=== PATIENT | female | born 1985 | race Caucasian/White ===

== ENCOUNTER 2017-10-26 12:09 | Emergency (ER) | payer MEDICAID ==
[~2017-10-26] VITALS: Ht 170.2 cm; Wt 60.0 kg
[~2017-10-26 12:09] MED LIST: CALNTAB; IBUP-232 PO; SENN1TAB PO
[2017-10-26 12:19] VITALS: BP 141/85; PULSE 85; RESP 20; TEMP 98.9; O2SAT 98
--- NOTE | 2017-10-26 13:35 | PD ---
HPI Chief Complaint: Abdominal Pain Time Seen by Provider: 13:22 Travel History International Travel<30 days: No Contact w/Intl Traveler<30days: No Traveled to known affect area: No History of Present Illness HPI 32-year-old female came to the emergency room with history of periumbilical pain on and off for past 2 weeks. Patient says she has been tolerating the pain but today she was at her class when the pain started again and got really severe. She had to leave the classroom because of the pain and at that time decided to come to the emergency room here. No history of nausea vomiting. Patient says every time she gets the pain she feels like she has to pass gas in order to feel better. She does feel better after she passes gas but then the pain comes back again. Patient has history of constipation. She has history of bowel movements normally once every 2 days. However in past 2 weeks she has been slower than that. She did not move her bowels for 4-5 days at a time in between. Patient has not tried any uhro-xyf-lclgoll laxatives or Gas-X or any other medication. She did some Google search today and found couple of worrisome differential diagnosis and hence came here. She does not have a primary care. Vital signs are stable. No aggravating factors identified for the pain. [facility] Past Medical History Narrative Medical List of her past medical, surgical, social and family history reviewed from the nursing note. Headaches: Yes ?: Unknown : 1 Para: 1 Social History Alcohol Use: Yes (occ) Tobacco Use: No Substance Use: No Allergies-Medications (Allergen,Severity, Reaction): Coded Allergies: No Known Allergies (Verified , 06/17/16) Comments No known drug allergies. Reported Meds & Prescriptions Reported Meds & Active Scripts Active Miralax Powder (Polyethylene Glycol 3350 Powder) 17 Gm Powd 17 Gm PO DAILY Mix and dissolve one measuring cap-ful (17 grams) in water or juice. Ibuprofen 600 Mg Tab 600 Mg PO Q6H PRN Senna Plus 8.6-50 mg (Sennosides-Docusate Sodium) 1 Tab Tab 1 Tab PO Q12H PRN Reported Calna ( Vitamin) 1 Tab Tab Narrative Medication List of her home medications reviewed from the nursing note Review of Systems Except as stated in HPI: all other systems reviewed are Neg Gastrointestinal: Positive: Abdominal Pain, Constipation Physical Exam Narrative GENERAL: Awake, alert, mild distress SKIN: Focused skin assessment warm/dry. HEAD: Atraumatic. Normocephalic. EYES: Pupils equal and round. No scleral icterus. No injection or drainage. ENT: No nasal bleeding or discharge. Mucous membranes pink and moist. NECK: Trachea midline. No JVD. CARDIOVASCULAR: Regular rate and rhythm. No murmur appreciated. RESPIRATORY: No accessory muscle use. Clear to auscultation. Breath sounds equal bilaterally. GASTROINTESTINAL: Abdomen soft, non-tender, nondistended. Hepatic and splenic margins not palpable. MUSCULOSKELETAL: No obvious deformities. No clubbing. No cyanosis. No edema. NEUROLOGICAL: Awake and alert. No obvious cranial nerve deficits. Motor grossly within normal limits. Normal speech. PSYCHIATRIC: Appropriate mood and affect; insight and judgment normal. Data Data Last Documented VS Orders Orders Complete Blood Count With Diff (10/26/17 12:22) Comprehensive Metabolic Panel (10/26/17 12:22) Urinalysis - C+S If Indicated (10/26/17 12:22) Ed Urine Pregnancytest Poc (10/26/17 12:22) Lipase (10/26/17 12:22) Abdomen, Flat & Upright (10/26/17 ) Ed Discharge Order (10/26/17 15:25) Labs Laboratory Tests Test 10/26/17 13:50 10/26/17 14:00 Urine Color YELLOW Urine Turbidity HAZY Urine pH 6.0 Urine Specific Parsons 1.028 Urine Protein TRACE mg/dL Urine Glucose (UA) NEG mg/dL Urine Ketones NEG mg/dL Urine Occult Blood NEG Urine Nitrite NEG Urine Bilirubin NEG Urine Urobilinogen LESS THAN 2.0 MG/DL Urine Leukocyte Esterase NEG Urine RBC LESS THAN 1 /hpf Urine WBC LESS THAN 1 /hpf Urine Squamous Epithelial Cells 7 /hpf Urine Bacteria OCC /hpf Urine Mucus FEW /lpf Microscopic Urinalysis Comment CULT NOT INDICATED White Blood Count 4.5 TH/MM3 Red Blood Count 3.82 MIL/MM3 Hemoglobin 11.8 GM/DL Hematocrit 35.3 % Mean Corpuscular Volume 92.4 FL Mean Corpuscular Hemoglobin 30.9 PG Mean Corpuscular Hemoglobin Concent 33.4 % Red Cell Distribution Width 12.4 % Platelet Count 186 TH/MM3 Mean Platelet Volume 7.8 FL Neutrophils (%) (Auto) 70.6 % Lymphocytes (%) (Auto) 15.7 % Monocytes (%) (Auto) 12.8 % Eosinophils (%) (Auto) 0.5 % Basophils (%) (Auto) 0.4 % Neutrophils # (Auto) 3.2 TH/MM3 Lymphocytes # (Auto) 0.7 TH/MM3 Monocytes # (Auto) 0.6 TH/MM3 Eosinophils # (Auto) 0.0 TH/MM3 Basophils # (Auto) 0.0 TH/MM3 CBC Comment DIFF FINAL Differential Comment Blood Urea Nitrogen 13 MG/DL Creatinine 0.64 MG/DL Random Glucose 83 MG/DL Total Protein 7.7 GM/DL Albumin 4.0 GM/DL Calcium Level 9.0 MG/DL Alkaline Phosphatase 63 U/L Aspartate Amino Transf (AST/SGOT) 15 U/L Alanine Aminotransferase (ALT/SGPT) 16 U/L Total Bilirubin 0.5 MG/DL Sodium Level 136 MEQ/L Potassium Level 3.7 MEQ/L Chloride Level 101 MEQ/L Carbon Dioxide Level 26.6 MEQ/L Anion Gap 8 MEQ/L Estimat Glomerular Filtration Rate 109 ML/MIN Lipase 120 U/L [facility] Medical Decision Making Medical Screen Exam Complete: Yes Emergency Medical Condition: Yes Medical Record Reviewed: Yes Differential Diagnosis Constipation, fecal impaction, enteritis Narrative Course 3:30 PM blood test results are back and within normal limit. X-ray is within normal limit. I will discharge her home with a prescription for MiraLAX. Procedures EKG Prior to Arrival: No Diagnosis Primary Impression: Constipation Qualified Codes: K59.00 - Constipation, unspecified Additional Impression: Abdominal pain Qualified Codes: R10.33 - Periumbilical pain Referrals: [facility] Additional Instructions: Take the medication as per prescription direction. Drink lots of fluid and high -fiber diet. Follow-up with the walk-in clinic whose address name has been provided to you on this discharge instructions. Med/Other Pt SpecificInfo: Prescription(s) given Scripts Polyethylene Glycol 3350 Powder (Miralax Powder) 17 Gm Powd 17 GM PO DAILY for Constipation, #1 CAN 0 Refills Mix and dissolve one measuring cap-ful (17 grams) in water or juice. Prov: Mahi Chowdhury MD 10/26/17 Disposition: 01 DISCHARGE HOME Condition: Stable Mahi Chowdhury MD Oct 26, 2017 13:35
[2017-10-26 14:31] LABS: AUTOMATED NEUTROPHIL # 3.2 TH/MM3 (1.8-7.7); BASOPHIL % 0.4 % (0.0-2.0); EOSINOPHIL % 0.5 % (0.0-4.0); HEMATOCRIT 35.3 % (35.0-46.0); HEMOGLOBIN 11.8 GM/DL (11.6-15.3); LYMPH % 15.7 % (9.0-44.0); LYMPHOCYTE # 0.7 TH/MM3 (1.0-4.8); MEAN CELL VOLUME 92.4 FL (80.0-100.0); MEAN CORPUSCULAR HEMOGLOBIN 30.9 PG (27.0-34.0); MEAN CORPUSCULAR HGB CONC 33.4 % (32.0-36.0); MEAN PLATELET VOLUME 7.8 FL (7.0-11.0); MONO % 12.8 % (0.0-8.0); MONOCYTE # 0.6 TH/MM3 (0-0.9); NEUT % 70.6 % (16.0-70.0); PLATELET COUNT 186 TH/MM3 (150-450); RED BLOOD COUNT 3.82 MIL/MM3 (4.00-5.30); RED CELL DISTRIBUTION WIDTH 12.4 % (11.6-17.2); WHITE BLOOD COUNT 4.5 TH/MM3 (4.0-11.0)
[2017-10-26 14:37] LABS: BACTERIA, URINE OCC /hpf; BILIRUBIN, URINE NEG (NEG); BLOOD, URINE NEG (NEG); GLUCOSE,URINE NEG (NEG); KETONE, URINE NEG (NEG); MUCUS URINE FEW /lpf (OCC); NITRITE,URINE NEG (NEG); SQUAMOUS EPITHELIAL CELL URINE 7 /hpf (0-5); URINE COLOR YELLOW (YELLW/STRAW); URINE LEUKOCYTE ESTERASE NEG (NEG)
[2017-10-26 14:49] LABS: AST (GOT) 15 U/L (15-37); BICARBONATE 26.6 MEQ/L (21.0-32.0); BLOOD UREA NITROGEN 13 MG/DL (7-18); CHLORIDE 101 MEQ/L (98-107); CREATININE 0.64 MG/DL (0.50-1.00); GLOMERULAR FILTRATION RATE 109 ML/MIN (>89); GLUCOSE,RANDOM 83 MG/DL (74-106); SODIUM (NA) 136 MEQ/L (136-145)
[2017-10-26 14:50] LABS: ALT (GPT) 16 U/L (10-53)
[2017-10-26 14:52] LABS: ALKALINE PHOSPHATASE 63 U/L (45-117); TOTAL BILIRUBIN ADULT 0.5 MG/DL (0.2-1.0); TOTAL PROTEIN 7.7 GM/DL (6.4-8.2)
--- NOTE | 2017-10-26 15:18 | RADRPT ---
EXAM DATE: 10/26/2017 3:14 PM EDT AGE/SEX: 32 years / Female INDICATIONS: Abdominal pain. CLINICAL DATA: This is the patient's initial encounter. Patient reports that signs and symptoms have been present for 1 week and indicates a pain score of 8/10. MEDICAL/SURGICAL HISTORY: None. None. COMPARISON: No prior [facility] exams available for comparison. FINDINGS: Supine and upright views of the abdomen were performed. The abdominal bowel gas pattern is normal. No air-fluid levels are seen. No abnormal masses, calcifications, or organomegaly is seen. The visualiz ed lower lungs are clear. No evidence of free intraperitoneal gas. The osseous structures are unremar kable. CONCLUSION: Negative examination. Electronically signed by: Tico Arroyo MD 10/26/2017 3:17 PM EDT
[2017-10-26] MEDS ORDERED: MIRA3350 PO (15:31)
== END 2017-10-26 16:12 | disposition home or self-care (01) ==
LOC: NEPD 12:09
DX: K59.00 Constipation, unspecified (principal); R10.33 Periumbilical pain
CPT/HCPCS: 74019; 80053; 81001; 83690; 84703; 85025; 99284